=== PATIENT | female | born 1930 | race African-American/Black ===

== ENCOUNTER 2017-03-10 05:48 | Emergency (ER) | payer MEDICARE, MEDICAID ==
[~2017-03-10] VITALS: Ht 170.2 cm; Wt 77.1 kg
[2017-03-10] MEDS ORDERED: DIATR MEGLU/DIATRIZOATE SODIUM 30 ML BOTTLE (GASTROGRAPHIN) ONE (06:25)
--- NOTE | 2017-03-10 06:25 | NUR ---
PT BIB [facility] WITH A C/O GTUBE PULLED OUT. PT IS NON VERBAL. PT TRACKS WITH EYES. PT IS ON THE MONITOR AND CONTINOUS PULSE OX.
--- NOTE | 2017-03-10 06:31 | NUR ---
GASTROGRAFIN GIVEN VIA GTUBE. XRAY IN PROGRESS AT THE BEDSIDE.
--- NOTE | 2017-03-10 06:39 | NUR ---
PT'S DAUGHTER IS AT THE BEDSIDE.
--- NOTE | 2017-03-10 06:40 | NUR ---
PT REC'D A PILLOW UNDER BLE.
--- NOTE | 2017-03-10 07:29 | NUR ---
[facility] CALLED FOR TRANSPORT. ETA 1 HR.
--- NOTE | 2017-03-10 07:33 | NUR ---
REPORT GIVEN TO RIDDHI FULTON FOR KWADWO.
--- NOTE | 2017-03-10 08:35 | NUR ---
REPORT GIVEN TO [facility] EMT. COPY OF IMAGING RESULT GIVEN WITH DISCHARGE. Patient discharged to home in stable condition. Written and verbal after care instructions given. EMT'S verbalizes understanding of instruction.
--- NOTE | 2017-03-10 08:36 | NUR ---
PT LEFT VIA AMBULANCE.
[2017-03-10 08:37] VITALS: BP 177/94
== END 2017-03-10 08:37 | disposition home or self-care (01) ==
LOC: ER 05:51
DX: Z43.1 Encounter for attention to gastrostomy (principal); I10 Essential (primary) hypertension; K21.9 Gastro-esophageal reflux disease without esophagitis; Z86.73 Personal history of transient ischemic attack (TIA), and cerebral infarction without residual deficits; F03.90 Unspecified dementia, unspecified severity, without behavioral disturbance, psychotic disturbance, mood disturbance, and anxiety; Z88.0 Allergy status to penicillin
CPT/HCPCS: 43760; 74000; 99284; A4606; Q9963; Z7610

== ENCOUNTER 2017-03-12 09:59 | Inpatient (IN) | payer MEDICARE, MEDICAID ==
[~2017-03-12] VITALS: Ht 165.1 cm; Wt 74.8 kg
--- NOTE | 2017-03-12 10:05 | NUR ---
BIB EMS FOR G-TUBE REPLACEMENT, PT PULLED OUT G-TUBE THIS MORNING. RESPIRATION IS EVEN AND UNLABORED WITH NAD NOTED. SKIN IS WARM AND NON DIAPHORETIC. AWAITING MD FOR EVAL.
--- NOTE | 2017-03-12 10:10 | NUR ---
EPIC CALLED - PAGED
[2017-03-12] MEDS ORDERED: OMEP20CA10 GT (10:23)
[2017-03-12] MEDS ORDERED: LISI10TA5 GT (10:23)
[2017-03-12] MEDS ORDERED: CRAN3875 GT (10:23)
[2017-03-12] MEDS ORDERED: ASPI81TA2 GT (10:23)
[2017-03-12] MEDS ORDERED: DOCU50LI GT (10:23)
[2017-03-12] MEDS ORDERED: ACET-868 GT (10:23)
[2017-03-12] MEDS ORDERED: VALS160T2 GT (10:23)
[2017-03-12] MEDS ORDERED: LACT-209 GT (10:23)
[2017-03-12] MEDS ORDERED: ATOR40TA GT (10:23)
[2017-03-12] MEDS ORDERED: CRAN425C GT (10:23)
--- NOTE | 2017-03-12 10:37 | NUR ---
SRINI AT BS.
[2017-03-12 10:42] LABS: BASOPHILS # (AUTO) 0.1 /CMM (0.0-0.2); BASOPHILS % (AUTO) 0.6 % (0.0-2.0); EOSINOPHILS # (AUTO) 0.1 /CMM (0.0-0.7); EOSINOPHILS % (AUTO) 1.6 % (0.0-6.0); HEMATOCRIT 49 % (33-45); HEMOGLOBIN 15.5 g/dL (11.5-14.8); LYMPHOCYTES # (AUTO) 2.2 /CMM (0.8-4.8); LYMPHOCYTES % (AUTO) 25.7 % (20.0-44.0); MEAN CORPUSCULAR HEMOGLOBIN 27 PG (26.0-33.0); MEAN CORPUSCULAR HGB CONC 32 g/dl (31.0-36.0); MEAN CORPUSCULAR VOLUME 86 fL (82-100); MONOCYTES # (AUTO) 0.4 /CMM (0.1-1.30); MONOCYTES % (AUTO) 4.9 % (2.0-12.0); NEUTROPHILS # (AUTO) 5.9 /CMM (1.8-8.9); NEUTROPHILS % (AUTO) 67.2 % (43.0-81.0); PLATELET COUNT (AUTO) 228 /CMM (150-450); RDW COEFFICIENT OF VARIATION 13.8 (11.5-15.0); RED BLOOD CELL COUNT(AUTO) 5.67 MIL/uL (4.0-5.2); WHITE BLOOD COUNT (AUTO) 8.7 K/uL (4.3-11.0)
[2017-03-12 10:50] LABS: CARBON DIOXIDE 27 mmol/L (21-32); CHLORIDE 102 mmol/L (98-107); CREATININE 0.7 mg/dL (0.6-1.3); GLUCOSE 110 mg/dL (74-106); POTASSIUM 4.2 mmol/L (3.5-5.1); SODIUM SERUM 137 mmol/L (136-145); UREA NITROGEN, BLOOD 11 mg/dL (7-18)
[2017-03-12 10:54] LABS: INR 0.94 (0.87-1.13); PROTHROMBIN TIME 9.8 SECS (9.5-12.7)
--- NOTE | 2017-03-12 10:54 | NUR ---
REPORT GIVEN TO MS RN FOR CONTINUITY OF CARE IN [place]
[2017-03-12 10:56] LABS: ALANINE AMINOTRANSFERASE 35 U/L (12-78); ALBUMIN 3.3 g/dL (3.4-5.0); ALKALINE PHOSPHATASE 100 U/L (46-116); ASPARTATE AMINOTRANSFERASE 24 U/L (15-37); BILIRUBIN,DIRECT 0.1 mg/dL (0.0-0.2); BILIRUBIN,TOTAL 0.5 mg/dL (0.2-1.0); TOTAL PROTEIN, SERUM 7.9 g/dL (6.4-8.2)
[2017-03-12 11:30] VITALS: BP 151/74
[2017-03-12] MEDS ORDERED: MAG HYDROX/AL HYDROX/SIMETH 30 ML UDC PO PRN (11:30)
[2017-03-12] MEDS ORDERED: ACETAMINOPHEN 325 MG TABLET PO PRN (11:30)
[2017-03-12] MEDS ORDERED: hydrALAZINE HCL IV 20 MG VIAL IV PRN (11:30)
[2017-03-12] MEDS ORDERED: ONDANSETRON HCL/PF 4 MG/2 ML VIAL IVP PRN (11:30)
[2017-03-12] MEDS ORDERED: Z GUARD REMEDY 2 OZ OINT TP PRN (11:30)
[2017-03-12] MEDS ORDERED: IV D5/0.45 NACL 500 ML IV PRN (11:30)
[2017-03-12] MEDS ORDERED: ZOLPIDEM TARTRATE 5 MG TABLET PO PRN (11:30)
--- NOTE | 2017-03-12 11:30 | NUR ---
medical administrative technician opening notes received patient in bed, awake/alert, confused. No s/s of distress. Patient keeps on touching, pulling on the IV line. Bed in the low position, call light within reach
[2017-03-12 12:00] VITALS: BP 151/74
--- NOTE | 2017-03-12 13:03 | NUR ---
MS RN NOTES WILL ATTEMPT TO CONNECT IVF AGAIN FOR PATIENT. PATIENT NON VERBAL. UNABLE TO ACKNOWLEDGE NODDING YES OR NO OR BLINKING TO STATE UNDERSTANDING. PATIENT TENSES UP ONCE TOUCHED AND NEEDING 2 PERSON ASSIST WITH ADL'S SHE RESISTS. PATIENT APPEARS STABLE AT THIS TIME. WILL CONTINUE TO MONITOR. PER RYANN PATIENT IS FULL CODE. AND DAUGHTER DONATO ANNEERS IS DECISION MAKER FOR PATIENT; DAUGHTER. PATIENT IS COMING FROM [facility]
[2017-03-12] MEDS: PANTOPRAZOLE 40 MG VIAL IV SCH (13:08)
[2017-03-12] MEDS: IV D5/0.45 NACL 1,000 ML IV PRN (13:09)
--- NOTE | 2017-03-12 15:41 | NUR ---
MIXER WET POUR NOTE CALLED DAUGHTER DONATO LOPEZ AT TO OBTAIN CONSENTS, MESSAGE BOX IS FULL, UNABLE TO LEAVE A MESSAGE
[2017-03-12 16:00] VITALS: BP 156/75
--- NOTE | 2017-03-12 16:30 | NUR ---
medical anthropology director note Called facility to verify if daughter phone number Seven LOPEZ is correct, nurse from the facility provided the same number that's in the chart . Called this number again to obtain consents, unable to leave message (message box is full)
--- NOTE | 2017-03-12 16:59 | NUR ---
MS RN NOTES PER DIETARY PATIENT TO START FIBERSOURCE AT 50ML/HR X 24H
--- NOTE | 2017-03-12 18:30 | NUR ---
[employer] ATTENDANT NOTES RECEIVED PATIENT IN THE BED, ALL MEDS DUE GIVEN, ALL NEEDS MET, SAFETY PRECAUTIONS OBSERVED. PATIENT IS STABLE, WILL ENDORSE REPORT TO UPCOMING RN
--- NOTE | 2017-03-12 19:45 | NUR ---
RN INITIAL NOTE RECEIVED PT IN NO ACUTE DISTRESS IN BED. PT IS NON VERBAL AND DOESNT RESPOND TO QUESTIONS, BUT OPENS EYES. PT NOT SHOWING S/S OF SOB, DIFFICULTY BREATHING OR PAIN AT THIS TIME. PT HAS BANDAGE OVER OLD GTUBE SITE, WHICH IS CLEAN DRY AND INTACT WITH NO DRAINING. PT HAS RHAND 20G THAT IS CLEAN DRY INTACT AND PATENT WITH D51/2 NS @ 75ML/HR. BED IN LOW LOCK POSITION WITH RIALS UP X 2. CALL LIGHT WITHIN REACH AND ALL SAFETY MEASURES ENSURED AND CARRIED OUT. WILL CONTINUE TO MONITOR PT.
[2017-03-12 20:00] VITALS: BP 170/83
[2017-03-12 20:53] VITALS: BP 170/83
[2017-03-13] VITALS (7 sets, daily range): BP systolic 136–167; BP diastolic 70–90
[2017-03-13] MEDS: HYDROCODONE/APAP 5/325MG 1 EACH TABLET PO PRN (06:03)
--- NOTE | 2017-03-13 06:50 | NUR ---
RN CLOSING NOTE PT REMAINS IN NO ACUTE DISTRESS IN BED. PT DID NOT HAVE ANY SIGNIFICANT CHANGE IN CONDITION DURING SHIFT. ALL NEEDS MET, ALL ORDERS CARRIED OUT. WILL ENDORSE CARE TO AM RN FOR CONTINUITY OF CARE.
--- NOTE | 2017-03-13 07:30 | NUR ---
PT RECEIVED RESTING COMFORTABLY IN BED WITH EYES CLOSED. NO S/S OR C/O PAIN OR DISTRESS NOTED. SIDE RAILS UP X2, CALL LIGHT LEFT WITHIN REACH. WILL CONTINUE PLAN OF CARE.
[2017-03-13 07:45] LABS: CALCIUM, SERUM 9.6 mg/dL (8.5-10.1); CARBON DIOXIDE 28 mmol/L (21-32); CHLORIDE 104 mmol/L (98-107); CREATININE 0.8 mg/dL (0.6-1.3); GLUCOSE 140 mg/dL (74-106); MAGNESIUM 2.3 mg/dL (1.8-2.4); PHOSPHORUS 2.4 mg/dL (2.5-4.9); POTASSIUM 4.5 mmol/L (3.5-5.1); SODIUM SERUM 141 mmol/L (136-145); UREA NITROGEN, BLOOD 9 mg/dL (7-18)
[2017-03-13 08:19] LABS: BASOPHILS % (AUTO) 0.1 % (0.0-2.0); EOSINOPHILS # (AUTO) 0.1 /CMM (0.0-0.7); EOSINOPHILS % (AUTO) 0.4 % (0.0-6.0); HEMATOCRIT 49 % (33-45); HEMOGLOBIN 15.4 g/dL (11.5-14.8); LYMPHOCYTES # (AUTO) 1.5 /CMM (0.8-4.8); LYMPHOCYTES % (AUTO) 11.9 % (20.0-44.0); MEAN CORPUSCULAR HEMOGLOBIN 28 PG (26.0-33.0); MEAN CORPUSCULAR HGB CONC 32 g/dl (31.0-36.0); MEAN CORPUSCULAR VOLUME 87 fL (82-100); MONOCYTES # (AUTO) 0.6 /CMM (0.1-1.30); MONOCYTES % (AUTO) 4.9 % (2.0-12.0); NEUTROPHILS # (AUTO) 10.1 /CMM (1.8-8.9); NEUTROPHILS % (AUTO) 82.7 % (43.0-81.0); PLATELET COUNT (AUTO) 297 /CMM (150-450); RDW COEFFICIENT OF VARIATION 14.4 (11.5-15.0); RED BLOOD CELL COUNT(AUTO) 5.57 MIL/uL (4.0-5.2); WHITE BLOOD COUNT (AUTO) 12.2 K/uL (4.3-11.0)
--- NOTE | 2017-03-13 09:45 | NUR ---
DR BURNETTE PAGED RE PROCEDURE. AWAITING CALL BACK.
[2017-03-13] MEDS: PANTOPRAZOLE 40 MG VIAL IV SCH (13:52)
[2017-03-13] MEDS ORDERED: K PHOS NEUTRAL 250 MG TABLET PO ONE (16:00)
[2017-03-13] MEDS ORDERED: Sodium Phosphate 15 MMOL in IV D5W 250 ML IV ONE (17:00)
--- NOTE | 2017-03-13 19:50 | NUR ---
BEER BREWER INITIAL NOTE PT RECEIVED IN NO ACUTE DISTRESS CALMLY RESTING IN BED WITH FAMILY AT BEDSIDE. PT DAUGHTER CALLED FROM [place] REGARDING PEG PLACEMENT IN WHICH I REPORTED THAT TOMORROW WOULD BE THE DATE FOR THE SURGERY. PT IS NONVERBAL BUT ABLE TO TRACK WITH EYES AT TIMES. PT IS NPO EXCEPT FOR MEDICATIONS BUT WILL HOLD ANY MEDS BY MOUTH DUE TO POTENTIAL FOR ASPIRATION. PT HAS A RIGHT HAND 20G IV THAT IS RUNNING D5 1/2 NS. SAFETY AND COMFORT MEASURES TO BE ENSURED DURING THE SHIFT. WILL CONTINUE TO MONITOR FOR ANY CHANGES.
--- NOTE | 2017-03-13 19:54 | NUR ---
CHANGE OF SHIFT REPORT PT RESTING COMFORTABLY IN BED WITH EYES CLOSED. NO S/S OR C/O PAIN OR DISTRESS NOTED. SIDE RAILS UP X2, CALL LIGHT LEFT WITHIN REACH. PT KEPT CLEAN, DRY, AND COMFORTABLY. NO SIGNIFICANT CHANGES SINCE PREVIOUS SHIFT. REPORT GIVEN TO JOSE HANNON.
[2017-03-13] MEDS: IV D5/0.45 NACL 1,000 ML IV PRN (20:29)
[2017-03-14] VITALS (7 sets, daily range): BP systolic 154–175; BP diastolic 74–88
--- NOTE | 2017-03-14 04:59 | NUR ---
RN NOTE PT HAS SBP OVER 160. TO GIVE PRN HYDRALAZINE IVP
[2017-03-14 06:53] LABS: HEMATOCRIT 49 % (33-45); HEMOGLOBIN 15.8 g/dL (11.5-14.8); MEAN CORPUSCULAR HEMOGLOBIN 28 PG (26.0-33.0); MEAN CORPUSCULAR HGB CONC 32 g/dl (31.0-36.0); MEAN CORPUSCULAR VOLUME 87 fL (82-100); PLATELET COUNT (AUTO) 298 /CMM (150-450); RDW COEFFICIENT OF VARIATION 14.7 (11.5-15.0); RED BLOOD CELL COUNT(AUTO) 5.66 MIL/uL (4.0-5.2)
--- NOTE | 2017-03-14 07:05 | NUR ---
RN INITIAL NOTE PATIENT RECEIVED IN BED, SLEEPING. EASILY AROUSED. DOES NOT RESPOND TO QUESTIONS. TRACHS WITH EYES WHEN SPOKEN TO. RESPIRATIONS ARE EVEN AND UNLABORED, NO S/S OF RESPIRATORY DISTRESS OR SOB. SATING WELL ON ROOM AIR. SKIN IS WARM AND DRY TO TOUCH. IV SITE FLUSHED, PATENT. SAFETY PRECAUTIONS IMPLEMENTED, BED IN LOCKED, LOW POSITION WITH TWO SIDE RAILS UP. SCHEDULED FOR SURGERY THIS MORNING FOR GTUBE PLACEMENT. CONSENTS IN CHART. CALL LIGHT WITHIN EASY REACH. WILL CONTINUE TO MONITOR.
--- NOTE | 2017-03-14 07:15 | NUR ---
RN NOTE SURGERY TO PATIENT FOR GTUBE PLACEMENT.
[2017-03-14 07:20] LABS: ALANINE AMINOTRANSFERASE 34 U/L (12-78); ALBUMIN 3.3 g/dL (3.4-5.0); ALKALINE PHOSPHATASE 103 U/L (46-116); ASPARTATE AMINOTRANSFERASE 29 U/L (15-37); BILIRUBIN,TOTAL 0.6 mg/dL (0.2-1.0); CALCIUM, SERUM 9.5 mg/dL (8.5-10.1); CARBON DIOXIDE 25 mmol/L (21-32); CHLORIDE 106 mmol/L (98-107); CREATININE 0.8 mg/dL (0.6-1.3); GLUCOSE 126 mg/dL (74-106); POTASSIUM 3.8 mmol/L (3.5-5.1); SODIUM SERUM 140 mmol/L (136-145); TOTAL PROTEIN, SERUM 7.9 g/dL (6.4-8.2); UREA NITROGEN, BLOOD 8 mg/dL (7-18)
[2017-03-14] MEDS ORDERED: CLINDAMYCIN 900 MG/6 ML VIAL ONE (07:36)
--- NOTE | 2017-03-14 08:18 | NUR ---
RN NOTE PATIENT RETURNED FROM SURGERY. VITAL SIGNS ARE STABLE.
[2017-03-14 08:50] LABS: EOSINOPHILS % (MANUAL) 1 % (0-4); LYMPHOCYTES % (MANUAL) 21 % (16-48); MONOCYTES % (MANUAL) 4 % (0-11.0); NEUTROPHILS % (MANUAL) 74 (42-76)
[2017-03-14] MEDS: PANTOPRAZOLE 40 MG VIAL IV SCH (14:30)
[2017-03-14] MEDS: HYDROCODONE/APAP 5/325MG 1 EACH TABLET PO PRN ×2 (14:31→21:13)
[2017-03-14] MEDS: IV D5/0.45 NACL 1,000 ML IV PRN (16:10)
--- NOTE | 2017-03-14 18:53 | NUR ---
RN CLOSING NOTE CARRIED OUT ALL MD ORDERS, PATIENTS NEEDS ANTICIPATED. PATIENT KEPT CLEAN AND DRY. NO SIGNIFICANT EVENTS DURING MY SHIFT. WILL GIVE REPORT TO PM RN FOR KWADWO.
[2017-03-14] MEDS ORDERED: hydrALAZINE HCL 25 MG TABLET PO PRN (21:00)
[2017-03-15] MEDS: HYDROCODONE/APAP 5/325MG 1 EACH TABLET PO PRN ×2 (01:22→06:08)
[2017-03-15 04:00] VITALS: BP 146/81
[2017-03-15] MEDS: MAGNESIUM HYDROXIDE 30 ML UDC PO PRN ×2 (06:08→09:56)
[2017-03-15] MEDS: IV D5/0.45 NACL 1,000 ML IV PRN (06:09)
--- NOTE | 2017-03-15 07:00 | NUR ---
RN NOTE RECEIVED PT ON BED , NON- VERBAL , EYES OPEN, DOES NOT RESPOND TO QUESTIONS. RESPIRATION EVEN AND UNLABORED, NO SOB NOTED, NPO AT THIS TIME , GT INTACT , D51/2 NS RUNNING AT 75CC/HR VIA R HAND IV SITE G 20 , IV SITE CDI, SAFETY PRECAUTIONS IMPLEMENTED, BED LOCKED AND IN LOWEST POSITION , SR UP x3, CALL LIGHT WITHIN EASY REACH, WILL CONTINUE TO MONITOR.
[2017-03-15 08:00] VITALS: BP 138/64
[2017-03-15] MEDS ORDERED: FIBERSOURCE HN 1,000 ML BOTTLE GT PRN (08:30)
[2017-03-15] MEDS: PANTOPRAZOLE 40 MG VIAL IV SCH (13:08)
--- NOTE | 2017-03-15 14:00 | NUR ---
RN NOTES REPORT GIVEN TO ILIA HANNON AT [facility] . FAMILY NOTIFIED REGARDING PT BEING DISCHARGE TO REHAB TODAY .
[2017-03-15 15:00] VITALS: BP 113/50
--- NOTE | 2017-03-15 16:45 | NUR ---
RN NOTES REPORT GIVEN TO EMT PERSONAL, VSS STABLE , DISCHARGE SKIN PHOTO TAKEN , H/L DISCONTINUED , PT LEFT THE FLOOR TO MAIN ENTRANCE ACCOMPANIED BY EMT PERONEAL IN STABLE CONDITION.
== END 2017-03-15 16:40 | DRG 393 ==
LOC: ER 10:00 → MEDSG1 11:32 → TELE1 03-13 10:02 → MEDSG1 03-14 10:12
PROVIDERS: ADMIT Internal Medicine; ATTEND Internal Medicine
PROC: 0DH63UZ Insertion of Feeding Device into Stomach, Percutaneous Approach (ICD-10-PCS; principal; 2017-03-14 07:37)
DX: K94.23 Gastrostomy malfunction (principal); R53.2 Functional quadriplegia; D68.59 Other primary thrombophilia; R13.10 Dysphagia, unspecified; E44.1 Mild protein-calorie malnutrition; F03.90 Unspecified dementia, unspecified severity, without behavioral disturbance, psychotic disturbance, mood disturbance, and anxiety; R47.01 Aphasia; D72.829 Elevated white blood cell count, unspecified; E78.5 Hyperlipidemia, unspecified; I10 Essential (primary) hypertension; K21.9 Gastro-esophageal reflux disease without esophagitis; Z86.73 Personal history of transient ischemic attack (TIA), and cerebral infarction without residual deficits; Z68.27 Body mass index [BMI] 27.0-27.9, adult; Y83.9 Surgical procedure, unspecified as the cause of abnormal reaction of the patient, or of later complication, without mention of misadventure at the time of the procedure; Y82.8 Other medical devices associated with adverse incidents; Y92.129 Unspecified place in nursing home as the place of occurrence of the external cause
CPT/HCPCS: 36415; 71010-TC; 80048-TC; 80053-TC; 80076-TC; 83735-TC; 84100-TC; 85025-TC; 85730-TC; 86850-TC; 87081-TC; 87086-TC; 92611-TC; A4606; A9563; C9113; J0360; J3490; J7042; J7060; Z7610